=== PATIENT | female | born 1965 | race Two or more races ===

== ENCOUNTER 2016-08-29 18:59 | Emergency (ER) | payer MEDICARE, OTHER ==
[~2016-08-29] VITALS: Ht 160 cm; Wt 80.7 kg
[2016-08-29 19:56] VITALS: BP 120/60
[2016-08-29] MEDS ORDERED: HYDR-971 PO (19:57)
--- NOTE | 2016-08-29 19:57 | PHYS DOC ---
Adult General Chief Complaint Chief Complaint: LOWER BACK PAIN OR INJURY HPI HPI Patient is a 51 year old female presents emergency Department today with complaint of atraumatic low back pain that radiates to her left hip this been ongoing for several months. Patient states that she's been taking ibuprofen and arthritis pain medication at home without much relief. Patient has had an MRI performed in the past and she is awaiting appointment to see the neurosurgeon tomorrow at 1 PM. Patient denies saddle anesthesia or incontinence of urine and bowel. Patient denies any history of spinal column fractures or spinal cord injuries in the past. She denies any history of neuromuscular disease. Review of Systems Review of Systems Constitutional: Denies fever or chills [] Eyes: Denies change in visual acuity, redness, or eye pain [] HENT: Denies nasal congestion or sore throat [] Respiratory: Denies cough or shortness of breath [] Cardiovascular: No additional information not addressed in HPI [] GI: Denies abdominal pain, nausea, vomiting, bloody stools or diarrhea [] : Denies dysuria or hematuria [] Musculoskeletal: Denies back pain or joint pain [] Integument: Denies rash or skin lesions [] Neurologic: Denies headache, focal weakness or sensory changes [] Endocrine: Denies polyuria or polydipsia [] Current Medications Current Medications Current Medications Medications (Trade) Dose Ordered Sig/Jaret Start Time Stop Time Status Last Admin Dose Admin Morphine Sulfate 5 mg 1X ONCE 08/29/16 20:00 08/29/16 20:01 DC 08/29/16 20:09 5 MG Allergies Allergies Allergies Coded Allergies Type Severity Reaction Last Updated Verified No Known Drug Allergies 08/29/16 No Physical Exam Physical Exam Constitutional: Well developed, well nourished, no acute distress, non-toxic appearance. [] HENT: Normocephalic, atraumatic, bilateral external ears normal, oropharynx moist, no oral exudates, nose normal. [] Eyes: PERRLA, EOMI, conjunctiva normal, no discharge. [] Neck: Normal range of motion, no tenderness, supple, no stridor. [] Cardiovascular:Heart rate regular rhythm, no murmur [] Lungs & Thorax: Bilateral breath sounds clear to auscultation [] Abdomen: Bowel sounds normal, soft, no tenderness, no masses, no pulsatile masses. [] Skin: Warm, dry, no erythema, no rash. [] Back: Patient's back is normal in appearance without any overlying skin lesions suggestive of shingles, bruises or abrasions. There is no CVA tenderness. Patient's tenderness to palpation to her left lower back and the paraspinous soft tissues at L3-S1. There is no palpable defect, deformity or spasm. Extremities: No tenderness, no cyanosis, no clubbing, ROM intact, no edema. Bilateral lower extremities are without dystrophic changes. Strength is equal bilaterally. Neurologic: Alert and oriented X 3, normal motor function, normal sensory function, no focal deficits noted. [] Psychologic: Affect normal, judgement normal, mood normal. [] Current Patient Data Vital Signs Vital Signs Date Time Temp Pulse Resp B/P Pulse Ox O2 Delivery O2 Flow Rate FiO2 08/29/16 20:09 18 Room Air 08/29/16 19:56 98.1 107 100 98.1 EKG EKG [] Radiology/Procedures Radiology/Procedures [] Course & Med Decision Making Course & Med Decision Making Pertinent Labs and Imaging studies reviewed. (See chart for details) [] Dragon Disclaimer Dragon Disclaimer This electronic medical record was generated, in whole or in part, using a voice recognition dictation system. Departure Departure Impression: Primary Impression: Lumbar radiculopathy, chronic Disposition: 01 HOME, SELF-CARE Condition: GOOD Referrals: CALLIE MOJICA MD (PCP) Patient Instructions: Lumbosacral Radiculopathy Additional Instructions: 1. Take the medication as prescribed. 2. Review the discharge instructions provided for self-care and reasons to return to the emergency department. 3. Be sure to follow up with a neurosurgeon tomorrow 1 PM as planned. Scripts Hydrocodone/Apap 5-325 ([place] 5-325 Tablet)1 Each Tablet1 Tab PO PRN Q6HRS PRN PAIN #10 TAB Prov:RYAN FUNG 08/29/16 RYAN FUNG Aug 29, 2016 19:57
[2016-08-29] MEDS ORDERED: MORPHINE SULFATE 10 MG/ML VIAL. IM ONE (20:00)
== END 2016-08-29 20:11 | disposition home or self-care (01) ==
LOC: ER 18:59
DX: G89.29 Other chronic pain (principal); M54.16 Radiculopathy, lumbar region
CPT/HCPCS: 96372; 99283; J2270

== ENCOUNTER → 2016-09-25 | Outpatient (CLI) | payer MEDICARE, OTHER ==
[2016-08-29 19:56] VITALS: BP 120/60
[~2016-09-25] MED LIST: BENZ0.5T PO; FURO40TA4 PO; HYDR-971 PO; IBUP-1027 PO; ILOP12TA2 PO; LORA0.5T PO; LOXA50CA PO; POTA10TA12 PO; SERT50TA PO; SPIR50TA2 PO
[2016-09-25 10:18] LABS: PROTHROMBIN TIME PATIENT 12.5 SEC (11.7-14.0)
== END | disposition home or self-care (01) ==
LOC: SURGPAT 08:57
PROVIDERS: ATTEND Neurological Surgery
DX: M54.16 Radiculopathy, lumbar region (principal)
CPT/HCPCS: 36415; 85610; 85730; 87641

== ENCOUNTER 2016-10-02 08:04 | Observation (INO) | payer MEDICARE, OTHER ==
[2016-10-02] VITALS (9 sets, daily range): BP systolic 96–114; BP diastolic 50–68
[~2016-10-02] VITALS: Ht 170.2 cm; Wt 83.1 kg
[2016-10-02] MEDS ORDERED: LIDOCAINE 2% PF Vial for OR 5 ML VIAL. ONE (08:46)
[2016-10-02] MEDS ORDERED: ROCURONIUM 50 MG/5 ML VIAL. ONE (08:46)
[2016-10-02] MEDS ORDERED: fentaNYL PF VIAL 100 MCG/2 ML VIAL ONE (08:46)
[2016-10-02] MEDS ORDERED: REMIFENTANIL 2 MG VIAL. IV ONE (08:46)
[2016-10-02] MEDS ORDERED: ONDANSETRON PF 4 MG/2 ML VIAL. ONE (08:46)
[2016-10-02] MEDS ORDERED: DEXAMETHASONE SOD PHOS 20 MG/5 ML VIAL. ONE (08:46)
[2016-10-02] MEDS ORDERED: PROPOFOL 20 ML IV ONE (08:46)
[2016-10-02] MEDS ORDERED: MIDAZOLAM HCL/PF 2 MG/2 ML VIAL. ONE (08:46)
[2016-10-02] MEDS ORDERED: PHENYLEPHRINE 10 MG/ML VIAL. ONE ×2 (08:46→14:11)
[2016-10-02] MEDS: IV RINGERS,LACTATED 1000ML 1,000 ML IV SCH ×3 (09:29→22:46)
[2016-10-02] MEDS ORDERED: LIDOCAINE 1%/EPI 1:100,000 20 ML VIAL. ONE (10:55)
[2016-10-02] MEDS ORDERED: BUPIVACAINE 0.5% 50 ML VIAL. ONE (10:56)
[2016-10-02] MEDS ORDERED: THROMBIN TOPICAL 20,000 UNIT SPRAY.SYRN KIT TP ONE (10:56)
[2016-10-02] MEDS ORDERED: GELATIN SPONGE SIZE 100. ONE (10:56)
[2016-10-02] MEDS ORDERED: BACITRACIN 50,000 UNIT in IV NORMAL SALINE 1000ML BAG 1,000 ML IRR ONE (11:00)
[2016-10-02] MEDS ORDERED: IV RINGERS,LACTATED 1000ML 1,000 ML IV SCH (11:04)
[2016-10-02] MEDS ORDERED: LIDOCAINE 1% 1 ML SYRINGE. ID PRN (11:15)
[2016-10-02] MEDS ORDERED: ONDANSETRON PF 4 MG/2 ML VIAL. IV PRN ×2 (11:15→15:15)
[2016-10-02] MEDS ORDERED: HYDROmorphone 2 MG/ML VIAL IV PRN (11:15)
[2016-10-02] MEDS ORDERED: fentaNYL PF VIAL 100 MCG/2 ML VIAL IV PRN ×2 (11:15→15:15)
[2016-10-02] MEDS ORDERED: PHENYLEPHRINE in 0.9% NACL PF 1 MG/10 ML DISP.SYRIN. IV ONE (12:16)
[2016-10-02] MEDS ORDERED: DESFLURANE > 120 MINUTES IH ONE (13:32)
[2016-10-02] MEDS ORDERED: ePHEDrine PF IN SALINE 50 MG/5 ML DISP.SYRIN IV ONE (13:42)
[2016-10-02] MEDS ORDERED: GLYCOPYRROLATE 1 MG/5 ML VIAL. ONE (13:52)
[2016-10-02] MEDS ORDERED: NEOSTIGMINE METHYLSULFATE 5 MG/5 ML SYRINGE. ONE (14:41)
--- NOTE | 2016-10-02 15:09 | PDOC ---
BRIEF OPERATIVE NOTE Date: October 02, 2016 Pre-Op Diagnosis lumbar radiculopathy, lumbar disk herniation L4-5 and L5-S1 Post-Op Diagnosis same Procedure Performed left hemilaminotomies L4-5 and L5-S1 with discectomies Surgeon Dre Mathematics Teacher none Anesthesiologist Reji Anesthesia Type: General Blood Loss 25mL Specimens Obtained disc and decompression Findings prominent disc herniations L4-5 and L5-S1 with mass effect Complications none apparent Additional Remarks neuromonitoring remained at least baseline throughout the procedure EDMOND RHODES MD October 02, 2016 15:09
[2016-10-02] MEDS ORDERED: NALOXONE 0.4 MG/ML VIAL. IV PRN (15:15)
[2016-10-02] MEDS ORDERED: 0.9 % SODIUM CHLORIDE 10 ML DISP.SYRIN. IV PRN (15:15)
[2016-10-02] MEDS ORDERED: ACETAMINOPHEN 325 MG TABLET. PO PRN (15:15)
[2016-10-02] MEDS ORDERED: LORazepam 0.5 MG TABLET PO PRN (15:15)
[2016-10-02] MEDS ORDERED: diphenhydrAMINE 50 MG/ML VIAL IV PRN (15:15)
[2016-10-02] MEDS ORDERED: diphenhydrAMINE HCL 25 MG CAPSULE PO PRN (15:15)
[2016-10-02] MEDS ORDERED: oxyCODONE/APAP 5/325 1 TAB TABLET PO PRN (15:15)
[2016-10-02] MEDS ORDERED: ZOLPIDEM 5 MG TABLET. PO PRN (15:15)
[2016-10-02] MEDS ORDERED: CALCIUM CARBONATE 500 MG TAB.CHEW PO PRN (15:15)
[2016-10-02] MEDS ORDERED: MAG HYDROX/ALUMINUM HYD/SIMETH 30 ML ORAL.SUSP PO PRN (15:15)
[2016-10-02] MEDS: PROCHLORPERAZINE 10 MG/2 ML VIAL. IV PRN ×2 (15:21→15:55)
[2016-10-02] MEDS: fentaNYL PF VIAL 100 MCG/2 ML VIAL IV PRN ×4 (15:21→21:12)
[2016-10-02] MEDS: SPIRONOLACTONE 25 MG TABLET PO SCH (16:00)
[2016-10-02] MEDS: MORPHINE SULFATE 2 MG/ML DISP.SYRIN. IV PRN ×2 (16:15→16:29)
[2016-10-02] MEDS: CALCIUM CARB/VIT D3 500/200 TABLET. PO SCH (18:21)
[2016-10-02] MEDS: BENZTROPINE MESYLATE 1 MG TABLET. PO SCH ×2 (18:21→21:10)
[2016-10-02] MEDS: FERROUS SULFATE 325 MG TABLET. PO SCH (18:22)
[2016-10-02] MEDS: METHOCARBAMOL 750 MG TABLET PO SCH (19:39)
[2016-10-02] MEDS: DOCUSATE SODIUM 100 MG CAPSULE. PO SCH (21:10)
[2016-10-02] MEDS: SENNOSIDES/DOCUSATE 8.6/50MG TABLET. PO SCH (21:10)
[2016-10-02] MEDS: LOXAPINE SUCCINATE 25 MG CAPSULE PO SCH (21:11)
[2016-10-03] MEDS: oxyCODONE/APAP 5/325 1 TAB TABLET PO PRN ×3 (00:33→12:35)
[2016-10-03 02:20] VITALS: BP 105/55
[2016-10-03 06:22] VITALS: BP 116/60
[2016-10-03] MEDS: LOXAPINE SUCCINATE 25 MG CAPSULE PO SCH (08:07)
[2016-10-03] MEDS: FERROUS SULFATE 325 MG TABLET. PO SCH (08:08)
[2016-10-03] MEDS: METHOCARBAMOL 750 MG TABLET PO SCH ×2 (08:08→14:41)
[2016-10-03] MEDS: SENNOSIDES/DOCUSATE 8.6/50MG TABLET. PO SCH (08:08)
[2016-10-03] MEDS: BENZTROPINE MESYLATE 1 MG TABLET. PO SCH ×2 (08:08→14:40)
[2016-10-03] MEDS: CALCIUM CARB/VIT D3 500/200 TABLET. PO SCH (08:08)
[2016-10-03] MEDS: SPIRONOLACTONE 25 MG TABLET PO SCH (08:11)
[2016-10-03] MEDS: DOCUSATE SODIUM 100 MG CAPSULE. PO SCH (08:25)
[2016-10-03] MEDS ORDERED: MULTIVITAMIN with MINERAL TABLET. PO SCH (09:00)
[2016-10-03] MEDS ORDERED: SERTRALINE 50 MG TABLET. PO SCH (09:00)
[2016-10-03] MEDS ORDERED: POTASSIUM CHLORIDE 10 MEQ TABLET.ER. PO SCH (09:00)
--- NOTE | 2016-10-03 10:41 | ACF ---
Admission Forms Criteria MUSCULOSKELETAL DISEASE GRG Clinical Indications for Admission to Inpatient Care (Place 'X' for any and all applicable criteria): Hospital admission is needed for appropriate care of the patient because of 1 or more of the following: [ ]I. Fracture, dislocation, or other musculoskeletal injury requiring inpatient care(medical) as indicated by 1 or more of the following(4)(5)(6)(7) [ ]a) Vertebral fracture requiring observation for instability or neurologic compromise (8) [ ]b) Compartment syndrome (proven or cannot be ruled out during observation level of care) (9) [ ]c) Limb-threatening injury [ ]d) Major injury requiring inpatient stabilization such as traction initiation or external fixation before internal fixation or closure of complex or open fracture [ ]e) Major injury requiring inpatient treatment after emergency or observation level care (as appropriate) [ ]f) Severe pain requiring acute inpatient management [ ]g) Injury with suspicion of abuse or neglect (eg., child, dependent elderly) [ ]II. Newly diagnosed or suspected bone, joint, or orthopedic device infection (e.g., osteomyelitis, septic arthritis) needing 1 or more of the following(1)(2)(3) [ ]a) IV antibiotics that cannot be initiated in other than inpatient setting (e.g., patient too unstable or home infusion not available) [ ]b) Device removal or replacement [ ]c) Bone or soft tissue debridement [ ]d) Joint drainage (drain placement or repetitive aspirations) [ ]III. Severe rheumatologic disease (e.g., systemic lupus erythematosus, rheumatoid arthritis) with complications or comorbidities (Also use Optimal Recovery Care Criteria or General Recovery Criteria as appropriate on the basis of predominant condition), including 1 or more of the following( 10)(11)(12)(13) [ ]a) Severe infection (e.g., CODING SPECIALIST infection, sepsis) (14) [ ]b) Respiratory complications, including 1 or more of the following : [ ]i) Pleural effusion with respiratory compromise [ ]ii) Pulmonary hypertension with congestive failure [ ]iii) Respiratory failure [ ]iv) Pulmonary hemorrhage (15) [ ]c) Hematologic disease, including 1 or more of the following: [ ]i) Coagulopathy with bleeding [ ]ii) Thrombosis with hypercoagulable state [ ]iii) Thrombotic thrombocytopenic purpura [ ]d) Cerebritis with seizures, psychosis, or other severe abnormalities [ ]e) Vertebral destruction with monitoring needed for cervical myelopathy& possible respiratory compromise [ ]f) Exacerbation that requires inpatient treatment (e.g., intravenous immunosuppression) (16) [ ]g) Acute renal failure [ ]h) Cerebritis with seizures, psychosis, Altered mental status, or other neurologic abnormalities [ ]i) Pericardial effusion with tamponade [ ]j) Vertebral destruction, with monitoring needed for cervical myelopathy and possible respiratory compromise [ ]IV. Severe vasculitis with complications or comorbidities (Also use Optimal Recovery Care Criteria General Recovery Criteria as appropriate on the basis of predominant condition), including 1 or more of the following(11)(12)(17)(18)(19)(20) [ ]a) Exacerbation that requires inpatient treatment (e.g., intravenous immunosuppression) (19)(21) [ ]b) Pulmonary hemorrhage (15) [ ]c) CODING SPECIALIST vasculitis with seizures, psychosis, Altered mental status that is severe or persistent, or other severe abnormalities (22) [ ]d) Cerebral infarction [ ]e) Gastrointestinal ischemia [ ]f) Gangrene or threatened amputation [ ]g) Renal failure (16) [ ]h) Other significant complications of vasculitis ( eg., tissue or organ ischemia, organ dysfunction ) [ ]V. Severe myopathy as indicated by 1 or more of the following (28)(29) [ ]a) New onset of airway compromise or inability to swallow [ ]b) Respiratory deterioration with observation needed for impending respiratory failure [ ]c) Exacerbation that requires inpatient treatment (e.g., intravenous immunosuppression) [ ]. Severe crystal gout (arthropathy) indicated by 1 or more of the following (23)(24) [ ]a) Severe pain requiring acute inpatient management [ ]b) Exacerbation that requires inpatient treatment (e.g., intravenous treatment) [ ]VII.Rhabdomyolysis and 1 or more of the following (25)(26)(27) [ ]a) Acute renal failure [ ]b) Need for intravenous hydration after emergency or observation level care (as appropriate) [ ]c) Inability to maintain oral hydration [ ]d) Change in mental status [ ]e) Electrolyte abnormality that remains after emergency or observation level care (as appropriate) [ ]VIII Post amputation complication, as indicated by ANY ONE of the following [ ]a) Infection [ ]b) Dehiscence [ ]c) Myodesis failure [ ]IX. Severe pain requiring acute inpatient management due to musculoskeletal condition [ ]X. Musculoskeletal Disease and ALL of the following: [ ]a) Symptom or finding for which emergency and observation care have failed or are not considered appropriate (Use General Criteria: Observation Care as appropriate) [ ]b) Presence of ANY ONE of the following [ ]i) A General Admission Criteria [ ]ii) A Pediatric General Admission Criteria The original [facility] content created by [employer] has been revised. The portions of the content which have been revised are identified through the use of italic text or in bold, and [facility] has neither reviewed nor approved the modified material. All other unmodified content is copyright [facility] [employer]. Please see references footnoted in the original [facility] [employer] edition 2016 ASHOK MARAVILLA October 03, 2016 10:41
--- NOTE | 2016-10-03 10:57 | PDOC ---
SUBJECTIVE Subjective Reports leg pain essentially resolved. Some incisional pain but controlled with medication. Reports ambulated to bathroom without significant problem. OBJECTIVE Vital Signs Vital Signs Date Time Temp Pulse Resp B/P (MAP) Pulse Ox O2 Delivery O2 Flow Rate FiO2 10/03/16 07:50 Room Air 10/03/16 07:06 20 96 Room Air 10/03/16 06:22 98.0 84 20 116/60 (78) 98 Room Air 98.0 10/03/16 02:20 98.1 99 18 105/55 (72) 97 Room Air 98.1 10/03/16 01:45 18 95 Room Air 10/03/16 00:33 20 96 Room Air 10/02/16 23:00 98.4 87 20 114/68 (83) 99 Room Air 98.4 10/02/16 21:45 18 96 Room Air 10/02/16 21:12 20 95 Room Air 10/02/16 20:00 99 20 102/59 (73) 95 Room Air 10/02/16 19:45 Nasal Cannula 10/02/16 19:45 106 18 112/54 (73) 97 Room Air 10/02/16 19:15 18 95 Room Air 10/02/16 18:55 103 16 112/54 (73) Room Air 10/02/16 18:23 97.1 96 20 108/50 (69) Room Air 97.1 10/02/16 18:14 Room Air 10/02/16 18:00 92 18 108/63 (78) Room Air 10/02/16 17:30 94 20 111/63 (79) 93 Room Air 10/02/16 17:00 82 20 102/55 (71) Room Air 10/02/16 16:45 Nasal Cannula 2.0 10/02/16 16:30 97.6 103 18 96/54 (68) 95 Room Air 97.6 10/02/16 16:29 20 99 Nasal Cannula 2.0 10/02/16 16:27 106 20 112/37 99 Nasal Cannula 2 10/02/16 16:15 20 99 Nasal Cannula 2.0 10/02/16 16:12 86 20 116/55 100 Nasal Cannula 2 10/02/16 15:57 91 20 127/51 98 Nasal Cannula 2 10/02/16 15:57 Nasal Cannula 2 10/02/16 15:42 97.1 93 20 139/65 98 Nasal Cannula 2 97.1 10/02/16 15:38 20 99 Simple Mask 10.0 10/02/16 15:25 96 20 137/50 100 Simple Mask 10 10/02/16 15:21 20 99 Simple Mask 10.0 10/02/16 15:10 97.4 84 20 125/62 100 Simple Mask 10 97.4 10/02/16 15:10 Mask 10 I & O Intake and Output 10/03/16 07:00 Intake Total 2255 ml Output Total 2100 ml Balance 155 ml Intake Oral 905 ml IV Total 1350 ml Output Urine Total 2100 ml # Bowel Movements 2 PHYSICAL EXAM Physical Exam AAOx4, TOUSSAINT 5/5, sensation intact LT, c/d/i ASSESSMENT/PLAN Assessment/Plan POD 1 L4-5 and L5-S1 hemilaminotomies and discectomies -appears to be recovering well thus far -d/c home today Problems: EDMOND RHODES MD October 03, 2016 10:57
[2016-10-03 11:13] VITALS: BP 105/59
[2016-10-03] MEDS ORDERED: SENN-37 PO (14:27)
[2016-10-03] MEDS ORDERED: OXYC-323 PO (14:27)
[2016-10-03] MEDS ORDERED: METH-38 PO (14:28)
[2016-10-03 15:00] VITALS: BP 107/61
--- NOTE | 2016-10-03 18:50 | OP ---
DATE OF SURGERY: 10/02/2016 SURGEON: Perico Rhodes MD. BOLT THREADER: None. PREOPERATIVE DIAGNOSIS: Disk herniations at lumbar 4-5 and lumbar 5 and sacral 1 with radiculopathy. POSTOPERATIVE DIAGNOSIS: Disk herniations at lumbar 4-5 and lumbar 5 and sacral 1 with radiculopathy. PROCEDURE: Left lumbar 4-5 hemilaminotomy with diskectomy, left L5-S1. hemilaminotomy with diskectomy. ANESTHESIA: General. COMPLICATIONS: None intraprocedurally. INDICATIONS FOR THE PROCEDURE: The patient is a 51-year-old female with left lower extremity pain localized to disk herniations of left paracentral region at lumbar 4-5 and lumbar 5 and sacral 1. She has been refractory to multiple nonsurgical treatments. Please refer to the patient's chart for additional details. DESCRIPTION OF PROCEDURE: After informed consent was obtained, the patient was brought into the operating room. She was placed under general anesthesia. Neuro monitoring was instituted and baseline potentials were obtained. The patient was placed in prone position on the [place] table. All pressure points were checked and padded appropriately. Appropriate incision location was localized with fluoroscopy and the lumbar region was prepped and draped in the usual sterile fashion. A vertical incision centered over the region of lumbar 4-5 and lumbar 5 and sacral 1 was made with a 10 blade scalpel. Monopolar electrocautery was utilized to dissect the avascular midline to the spinous processes of lumbar 4 and lumbar 5 and sacral 1 and leftward across the lamina at this location. Level was verified with fluoroscopy prior to the initiation of decompression. A left hemilaminotomy was performed at lumbar 5 and sacral 1 utilizing a pneumatic drill as well as Kerrison rongeur. Once the bony material was removed over this location, the underlying ligament was gently dissected free with a [place] and a blunt nerve hook and removed with a Kerrison rongeur. The disk space was readily identified and the small annulotomy was performed with 11 blade scalpel. Disk material was removed in a piecemeal fashion utilizing a pituitary rongeur. Additional disk material was teased posterolaterally with a blunt nerve hook and additional disk material was removed with pituitary rongeur. A significant degree of calcification was noted of this with the disk material. Upon completion of this, the adjacent neural elements were noted to be well decompressed, which was verified with direct visualization as well as gentle palpation with Saul. Upon completion of this, attention was turned to lumbar 4-5. Left hemilaminotomy was performed at lumbar 4-5 with a pneumatic drill as well as Kerrison rongeur. The underlying ligament was gently dissected free from the neural elements and removed with a Kerrison rongeur. The neural elements were gently retracted medially and the annulus was identified. A small annulotomy was performed at lumbar 4-5 with an 11 blade scalpel. Disk material was removed in a piecemeal fashion with pituitary rongeur. Disk material was gently teased posterolaterally with a blunt nerve hook and removed with pituitary rongeur. On completion of the decompression and diskectomy, the neural elements were noted to be very well decompressed. This was verified with direct visualization as well as gentle palpation with a [place]. Upon completion of decompression of both locations, pristine hemostasis was ensured with FloSeal, cottonoids and irrigation. Some use of bipolar electrocautery was utilized as well. Upon completion of this, the wound was generously irrigated with antibiotic irrigation. The muscles and fascia were then reapproximated with 0 Vicryl in a simple interrupted fashion. Subcutaneous tissues were reapproximated with 2-0 Vicryl in interrupted inverted fashion. Skin was reapproximated with 4-0 Vicryl in a running subcuticular fashion. Mastisol and Steri-Strips were applied and the wound was dressed with Telfa and Tegaderm. At the end of procedure, all needle and sponge counts were correct x 2. Neuro monitoring remained at least at baseline throughout the entire procedure. The patient was subsequently extubated in the operating room and taken to recovery in stable condition. There were no intraprocedural complications apparent. PERICO RHODES MD DR: RACHEL/mily JOB#: [id number] / [id number]
--- NOTE | 2016-10-05 12:38 | PATHOLOGY ---
PATHOLOGY REPORT * * * * * * * * FINAL DIAGNOSIS: "Disc and decompression," removal: - Fragments of fibrocartilage with degenerative changes. - Fragments of unremarkable bone. (WOOD:; d/t: 10/05/16) REPORT ELECTRONICALLY SIGNED BY: Terrie Robledo M.D. DATE/TIME: 10/05/2016 12:37 * * * * * * * * GROSS PATHOLOGY: Received in formalin labeled "Pavel Phoenix, disc and decompression" are multiple segments of sinclair, rubbery, and gritty tissue admixed with bone. The specimen measures 4.6 x 3.2 x 1.1 cm in aggregate dimensions. The tissue is submitted representatively in cassette A1, following decalcification. (CAA; 10/04/2016) INITIAL CPT CODE(S): A; 39199, 05424 Professional services performed [place] [facility] [place] [address] Technical services performed by [facility] at [address] [place] [address], [facility], [place] [address], [place] [address]. SPECIMEN(S) RECEIVED: A.Disc and decompression CLINICAL HISTORY: Lumbar radiculopathy, disc herniation PATIENT: PAVEL PHOENIX /AGE: 901/23/1965 (Age: 51) PATIENT #: [id number] ALT CASE #: SPECIMEN COLLECTION DATE: 10/02/2016 SPECIMEN RECEIVED DATE: 10/03/2016 [facility] - [address] [place] [address] - PHONE: [phone] * * * END OF REPORT * * *
== END 2016-10-03 16:45 | disposition home or self-care (01) ==
LOC: SURG 08:04 → 4 SOUTHEST 15:43
PROVIDERS: ADMIT Neurological Surgery; ATTEND Neurological Surgery
DX: M54.16 Radiculopathy, lumbar region (principal); M51.26 Other intervertebral disc displacement, lumbar region; M79.605 Pain in left leg
CPT/HCPCS: 63030; 76000; 96374; 96376; 97110; 97116; 97162; 97166; G0378; G0379; G8978; G8979; G8980; J0690; J0780; J1100; J2250; J2270; J2370; J2405; J2704; J2710; J3010; J3490; J7030; J7120

== ENCOUNTER → 2018-07-21 | Day surgery (SDC) | payer OTHER, MEDICAID ==
[~2018-07-21] MED LIST changes: -BENZ0.5T PO; +BENZ0.5T32 PO; +BENZ1TAB5 PO; +CLON0.5T11 PO; +HYDR-3164 PO; -HYDR-971 PO; +IV RINGERS,LACTATED 1000ML 1,000 ML IV SCH; +LIDOCAINE 1% PF 2 ML VIAL. ONE; +METH-38 PO; +OXYC1TAB15 PO; +POTA20TA82 PO; +PROPOFOL 20 ML IV ONE; +SENN-37 PO; -SPIR50TA2 PO; +SPIR50TA4 PO; +TRAM50TA PO
--- NOTE | 2018-07-21 13:13 | PDOC1 ---
History and Physical Date of Admission Date of Admission DATE: 07/21/18 TIME: 13:10 Source Source: Chart review, Patient History of Present Illness History of Present Illness 53 y/o female here for CRC screening. No prior. No complaints. Prior cholecystectomy. Past Medical History Cardiovascular: HTN Psych: Anxiety, Bipolar, Depression, Schizophrenia Past Surgical History Past Surgical History: Cholecystectomy, Hernia Repair Family History Family History: Heart Disease, Hypertension, Stroke, Other Social History Smoke: No ALCOHOL: none Drugs: None Current Medications Current Medications Current Medications Ringer's Solution 1,000 ml @ 50 mls/hr Q20H IV Last administered on 07/21/18at 12:50; Start 07/21/18 at 07:00; Stop 07/21/18 at 18:59 Propofol 40 ml @ As Directed STK-MED ONCE IV ; Start 07/21/18 at 13:04; Stop 07/21 at 13:05; Status DC Lidocaine HCl (Xylocaine-Mpf 1% 2ml Vial) 2 ml STK-MED ONCE .ROUTE ; Start at 13:05; Stop 07/21/18 at 13:06; Status DC Lidocaine HCl (Xylocaine-Mpf 1% 2ml Vial) 2 ml STK-MED ONCE .ROUTE ; Start at 13:05; Stop 07/21/18 at 13:06; Status DC Active Scripts Active Tramadol Hcl 50 Mg Tablet 50 Mg PO Q6HRS PRN 7 Days Reported Fanapt (Iloperidone) 12 Mg Tablet 2 Tab PO HS Clonazepam 0.5 Mg Tablet 1 Tab PO TID Benztropine Mesylate 1 Mg Tablet 1 Tab PO BID Senokot-S Tablet (Sennosides/Docusate Sodium) 1 Each Tablet 1 Tab PO BID Zoloft (Sertraline Hcl) 50 Mg Tablet 50 Mg PO HS Loxapine (Loxapine Succinate) 50 Mg Capsule 100 Mg PO BID Allergies Allergies: Coded Allergies: No Known Drug Allergies (Unverified , 07/21/18) ROS Review of System Otherwise negative. Physical Exam General: Alert, Oriented X3, Cooperative, No acute distress Lungs: Clear to auscultation, Normal air movement Heart: S1S2, RRR, no gallops, no murmurs Abdomen: Normal bowel sounds, Soft, No tenderness, No hepatosplenomegaly, No masses Rectal Exam: deferred (to procedure) Extremities: No cyanosis, No edema Skin: No significant lesion Neuro: Normal gait, Normal speech, Strength at 5/5 X4 ext, Normal tone, Sensation intact, Cranial nerves 3-12 NL, Reflexes 2+ Psych/Mental Status: Mental status NL, Mood NL Vitals Vitals Vital Signs Date Time Temp Pulse Resp B/P (MAP) Pulse Ox O2 Delivery O2 Flow Rate FiO2 07/21/18 12:24 97.4 87 18 98 97.4 VTE Prophylaxis Ordered VTE Prophylaxis Devices: No VTE Pharmacological Prophylaxi: No Assessment/Plan Assessment/Plan IMP: CRC screening/FH polyps PLAN: Colonoscopy. ANGEL BARRETT MD Jul 21, 2018 13:13
--- NOTE | 2018-07-21 13:27 | PDOC4 ---
PROCEDURE Procedure Flex sig (attempted colonoscopy) Indication: CRC screening Meds: per anesthesia Findings: ANNAMARIA normal. --Scope advanced to near splenic flexure; at this point, obstructing stool we could not traverse. Mucosa normal; no diverticular disease or polyps noted. Small internal hemorrhoids on retroflex. Erorl. well. IMP: Inadequate prep, but normal exam to extent except hemorrhoids. PLAN: Will have her call office to re-schedule with 2-day prep. ANGEL BARRETT MD Jul 21, 2018 13:27
[2018-07-21 13:57] VITALS: BP 145/71
== END | disposition home or self-care (01) ==
LOC: ENDOS 12:05
PROVIDERS: ATTEND Internal Medicine Gastroenterology
DX: K64.0 First degree hemorrhoids (principal); F41.9 Anxiety disorder, unspecified; F31.9 Bipolar disorder, unspecified; I10 Essential (primary) hypertension; Z83.71 Family history of colonic polyps; Z90.49 Acquired absence of other specified parts of digestive tract; Z82.49 Family history of ischemic heart disease and other diseases of the circulatory system; Z79.899 Other long term (current) drug therapy; Z90.710 Acquired absence of both cervix and uterus; Z98.890 Other specified postprocedural states; F20.9 Schizophrenia, unspecified; Z82.3 Family history of stroke
CPT/HCPCS: 45330; J2704

== ENCOUNTER 2021-04-24 09:05 | Emergency (ER) | payer MEDICARE, MEDICAID ==
[~2021-04-24] VITALS: Ht 172.7 cm; Wt 98.5 kg
[~2021-04-24 09:05] MED LIST changes: +CLON-77 PO; -CLON0.5T11 PO; -IV RINGERS,LACTATED 1000ML 1,000 ML IV SCH; -LIDOCAINE 1% PF 2 ML VIAL. ONE; -POTA10TA12 PO; +POTA20TA4 PO; -POTA20TA82 PO; +POTASSIUM CHLO10 ME1 PO; -PROPOFOL 20 ML IV ONE
--- NOTE | 2021-04-24 13:40 | PHYS DOC ---
Past Medical History Past Medical History: Bipolar, Depression, Schizophrenia Past Surgical History: Cholecystectomy Additional Past Surgical Histo: D&C Smoking Status: Never Smoker Alcohol Use: None Drug Use: None General Adult EDM: Chief Complaint: PAIN CONTROL HPI: HPI: Patient is a 56 year old female who presents with greater than 10-year history of diffuse body pain. She reports that she feels like she is "burning on the inside." She denies any trauma or injury. She is seen her primary care physician multiple times for this pain. She denies chest pain, dyspnea, abdominal pain, nausea, vomiting, diarrhea, constipation. She denies urinary symptoms. She denies fevers or chills. She is scheduled to see her primary care physician in 2 days. She has taken naproxen for pain, with no relief. She reports that she has never been referred to pain management. She is unaware of any specific inciting events which caused her pain. Review of Systems: Review of Systems: Constitutional: Denies fever or chills. [] Eyes: Denies change in visual acuity. [] HENT: Denies nasal congestion or sore throat. [] Respiratory: Denies cough or shortness of breath. [] Cardiovascular: Denies chest pain or edema. [] GI: Denies abdominal pain, nausea, vomiting, or bowel habit changes. : Denies urinary symptoms. Musculoskeletal: Reports diffuse, non-focal body pain. Integument: Denies rash. [] Neurologic: Denies headache, focal weakness or sensory changes. [] Endocrine: Denies polyuria or polydipsia. [] Lymphatic: Denies swollen glands. [] Psychiatric: Chronic mood disorder, bipolar disorder, no reported acute changes . [] Heart Score: C/O Chest Pain: No Risk Factors: Risk Factors: DM, Current or recent (<one month) smoker, HTN, HLP, family history of CAD, obesity. Risk Scores: Score 0 - 3: 2.5% MACE over next 6 weeks - Discharge Home Score 4 - 6: 20.3% MACE over next 6 weeks - Admit for Clinical Observation Score 7 - 10: 72.7% MACE over next 6 weeks - Early Invasive Strategies Allergies: Allergies: Allergies Coded Allergies Type Severity Reaction Last Updated Verified No Known Drug Allergies 07/21/18 No Physical Exam: PE: Constitutional: Well developed, well nourished, no acute distress, non-toxic appearance. [] HENT: Normocephalic, atraumatic, mucus membranes moist Eyes: Sclera are clear and anicteric Neck: Normal range of motion, no tenderness, supple, no stridor, no deformity, no step off Cardiovascular:Heart rate regular rhythm, +2 radial and PT pulses bilaterally Lungs & Thorax: Bilateral breath sounds clear to auscultation [] Abdomen: Bowel sounds normal, soft, no tenderness, no masses, no pulsatile masses. [] Skin: Warm, dry, no erythema, no rash. [] Back: No tenderness, no CVA tenderness. [] Extremities: No tenderness, no cyanosis, no clubbing, ROM intact, no edema. No calf tenderness. Neurologic: Alert and oriented X 3, normal motor function, normal sensory function, no focal deficits noted. [] Psychologic: Affect is flat. She is cooperative. [] Current Patient Data: Vital Signs: Vital Signs Date Time Temp Pulse Resp B/P (MAP) Pulse Ox O2 Delivery O2 Flow Rate FiO2 04/24/21 10:59 98.1 85 17 138/52 (80) 100 98.1 EKG: EKG: [] Radiology/Procedures: Radiology/Procedures: [] Course & Med Decision Making: Course & Med Decision Making Pertinent Labs and Imaging studies reviewed. (See chart for details) IM Toradol and p.o. Flexeril given. I discussed the findings, differential diagnosis and plan of care with the patient. Her urine does appear to be contaminated, she denies urinary symptoms. Culture is pending. No indication for antibiotics at this time. She is otherwise stable. There is no current indication for further invasive exams, imaging or admission at this time. She has an appointment in 2 days with her PCP, I recommend she discuss this further with him at that time. She may continue taking her regularly prescribed medications as directed. Return precautions are given. Dragon Disclaimer: Dragon Disclaimer: This electronic medical record was generated, in whole or in part, using a voice recognition dictation system. Departure Departure Impression: Primary Impression: Chronic pain Qualified Codes: G89.29 - Other chronic pain Disposition: HOME / SELF CARE / HOMELESS Condition: STABLE Referrals: CALLIE MOJICA MD (PCP) Patient Instructions: Chronic Pain Additional Instructions: Your emergency department work-up here is unremarkable today. Please discuss your chronic pain issues with your primary care doctor your appointment on Saturday. You may wish to discuss taking a maintenance medication for your chronic pain, such as Lyrica or gabapentin. These medications may or may not be appropriate for you, your doctors will need to make their final decision about whether these are appropriate for you, especially with all of your other chronic medications you are required to take. Return to the ER for any acute injury or trauma, if there is any acute changes in your pain, if you develop chest pain, shortness of breath, vomiting, rios pain, dehydration, temperature 100.4 or higher or for any other concerns. JOHAN SOLOMON DO Apr 24, 2021 13:40
[2021-04-24] MEDS ORDERED: KETOROLAC 30 MG/ML VIAL. IM ONE (14:00)
[2021-04-24] MEDS ORDERED: CYCLOBENZAPRINE 10 MG TABLET. PO ONE (14:00)
[2021-04-24 14:07] LABS: BASO % 0 % (0-3); EOS # 0.2 x10^3/uL (0.0-0.7); EOS % 3 % (0-3); HEMATOCRIT 29.9 % (36.0-47.0); HEMOGLOBIN 9.6 g/dL (12.0-15.5); LYMPH # 1.3 x10^3/uL (1.0-4.8); LYMPH % 21 % (24-48); MEAN CORPUSCULAR HEMOGLOBIN 24 pg (25-35); MEAN CORPUSCULAR HGB CONC 32 g/dL (31-37); MEAN CORPUSCULAR VOLUME 74 fL (79-100); MONO # 0.4 x10^3/uL (0.0-1.1); MONO % 6 % (0-9); NEUT # 4.2 x10^3/uL (1.8-7.7); NEUT % 70 % (31-73); PLATELET COUNT 238 x10^3/uL (140-400); RED BLOOD COUNT 4.02 x10^6/uL (3.50-5.40); RED CELL DISTRIBUTION WIDTH 14.7 % (11.5-14.5)
[2021-04-24 14:17] LABS: CALCIUM 8.5 mg/dL (8.5-10.1); GFR 57.8; MAGNESIUM 2.1 mg/dL (1.8-2.4); POTASSIUM 3.8 mmol/L (3.5-5.1)
[2021-04-24 14:30] LABS: BILIRUBIN,URINE NEGATIVE (NEG); CLARITY,URINE CLEAR; COLOR,URINE YELLOW; NITRITE,URINE NEGATIVE (NEG); PH,URINE 5.5 (<5.0-8.0); PROTEIN,URINE NEGATIVE (NEG-TRACE); UROBILINOGEN,URINE 0.2 mg/dL (0.2 mg/dL)
[2021-04-24 14:45] LABS: BACTERIA,URINE 0 /HPF (0-FEW); RBC,URINE 0 /HPF (0-2)
[2021-04-24 15:13] VITALS: BP 120/63
== END 2021-04-24 15:48 | disposition home or self-care (01) ==
LOC: ER 09:05
DX: G89.29 Other chronic pain (principal); M79.10 Myalgia, unspecified site; F31.9 Bipolar disorder, unspecified; F20.9 Schizophrenia, unspecified
CPT/HCPCS: 36415; 80048; 81001; 83735; 85025; 87086; 96372; 99283; J1885; 87077

== ENCOUNTER → 2021-05-22 | Day surgery (SDC) | payer MEDICARE, MEDICAID ==
[~2021-05-22] VITALS: Ht 167.6 cm; Wt 86.0 kg
[~2021-05-22] MED LIST changes: +HYDROmorphone 2 MG/ML INJ. IVP PRN; +IV RINGERS,LACTATED 1000ML 1,000 ML IV SCH; +LIDOCAINE 2% PF 5 ML VIAL. ONE; +MORPHINE SULFATE 2 MG/ML INJ. IVP PRN; +PROCHLORPERAZINE 10 MG/2 ML VIAL. IVP PRN; +PROPOFOL 10 MG/ML (20ML) VIAL. IV ONE; +fentaNYL PF VIAL 100 MCG/2 ML VIAL IVP PRN
[2021-05-22 12:20] VITALS: BP 117/60
--- NOTE | 2021-05-22 13:31 | PDOC4 ---
PROCEDURE Procedure Colonoscopy/EGD with biopsies. Indication: VELMA Meds: per anesthesia Findings: ANNAMARIA normal. --'Scope advanced to TI. Prep adequate for lesions >6mm. Mucosa normal. No tics, polyps, masses. IH's on retroflex. TI normal. E--Severe, grade C-D reflux 27-37cm, with friablility, ulceration. G--Small HH, otherwise normal. Antral biopsies taken. D--Benign stricture distal bulb (prior NSAID use?), able to pass. Otherwise normal to second portion. Biopsies second portion. Errol. well. IMP: IH's Severe reflux esophagitis, bad enough to contribute to the anemia probably. HH Duodenal stricture raising question of prior NSAID use. REC: Await pathology. Omeprazole daily. F/u in 2 weeks. Consider SBCE if negative biopsies. Resume other meds, diet. ANGEL BARRETT MD May 22, 2021 13:31
[2021-05-22 14:00] VITALS: BP 131/63
--- NOTE | 2021-05-23 18:11 | PATHOLOGY ---
[facility] Accession Number: [id number] . 01 Material submitted: . PART A: duodenum - DUODENAL BIOPSY PART B: stomach - ANTRUM BIOPSY . 01 Clinical history: . ANEMIA EGD, COLONOSCOPY . 02 Diagnosis: A. Duodenal biopsy: - No diagnostic abnormalities. . B. Gastric biopsies, antrum: - Chronic gastritis, mild. (JPM:gin; 05/23/2021) S 05/23/2021 1338 Local . 02 Comment: Sections of the duodenal biopsy reveal segments of duodenal and small intestine mucosa. Where best oriented, the mucosal villi show no sprue-like changes or significant inflammatory changes. . Sections of the gastric biopsy reveal segments of gastric body and antral/body transition mucosa showing congestion and mild superficial chronic inflammation. A properly controlled immunoperoxidase stain for Helicobacter is negative for Helicobacter organisms. (JPM:gin; 05/23/2021) . Special stain performed: Immunoperoxidase stain for Helicobacter on B1 . Electronically signed: . Chapin Pandya MD, Pathologist NPI- [id number] . 01 Gross description: . A. The specimen is received in formalin, labeled "[place], Adrena, duodenum BX". Received are 2 segments of pale sinclair tissue specimen measuring 0.3 cm in maximum dimensions. The specimen is entirely submitted in cassette A1. . B. The specimen is received in formalin, labeled "[place], Adrena, antrum BX". Received are 3 segments of pale sinclair tissue ranging in size from 0.2-0.5 cm in maximum dimensions. The specimen is entirely submitted in cassette B1. ([facility]; 05/22/2021) NRI/NRI 05/22/[id number] Local . 02 Pathologist provided ICD-10: K29.50 . 02 CPT . 564710, 639617, E86190 Specimen Comment: A courtesy copy of this report has been sent to [phone], [phone] Specimen Comment: [id number] Specimen Comment: Report sent to AND DR MOJICA Performed at: [address] [facility], [place] [id number] MD Izaiah Cai MD Phone: [phone] Performed at: [facility] [address] [place], [place] [id number] MD Chapin Pandya MD Phone: [phone]
== END | disposition home or self-care (01) ==
LOC: ENDOS 12:08
PROVIDERS: ATTEND Internal Medicine Gastroenterology
DX: D50.9 Iron deficiency anemia, unspecified (principal); K64.0 First degree hemorrhoids; K29.50 Unspecified chronic gastritis without bleeding; K21.00 Gastro-esophageal reflux disease with esophagitis, without bleeding; K44.9 Diaphragmatic hernia without obstruction or gangrene; K31.5 Obstruction of duodenum; K63.89 Other specified diseases of intestine; K31.89 Other diseases of stomach and duodenum; I10 Essential (primary) hypertension; M19.90 Unspecified osteoarthritis, unspecified site; F41.9 Anxiety disorder, unspecified; F32.9 Major depressive disorder, single episode, unspecified; Z79.899 Other long term (current) drug therapy; Z98.890 Other specified postprocedural states
CPT/HCPCS: 43239; 45378; 88305; 88342; J2704